=== PATIENT | male | born 1995 | race African-American/Black ===

== ENCOUNTER 2018-10-12 21:43 | Emergency (ER) | payer OTHER ==
[~2018-10-12] VITALS: Ht 182.9 cm; Wt 106.6 kg
[2018-10-12 22:00] VITALS: BP 133/63
--- NOTE | 2018-10-12 22:59 | PHYS DOC ---
Past Medical History Past Medical History: No Pertinent History Past Surgical History: No Surgical History Alcohol Use: Occasionally Drug Use: None Adult General Chief Complaint Chief Complaint: EARACHE/EAR PAIN HPI HPI 23 y/o male presents to ER for c/o rt ear pain/pressure x1 day with concerns something is in his ear. He denies any other cold/flu like illness. He denies taking OTC meds for pain. He denies previous ear issues. He denies fever, MAGDALENO, dizziness, or N/V. Review of Systems Review of Systems Constitutional: Denies fever or chills [] Eyes: Denies change in visual acuity, redness, or eye pain [] HENT: Denies nasal congestion or sore throat/throat swelling. Reports rt ear pain/pressure- denies drainage. Denies Lt ear complaints. Denies decreased hearing Respiratory: Denies cough or shortness of breath [] Cardiovascular: No additional information not addressed in HPI [] GI: Denies nausea, vomiting : Denies urinary sxs Musculoskeletal: Denies back/neck pain or joint pain [] Integument: Denies rash or skin lesions [] Neurologic: Denies headache, focal weakness or sensory changes. Denies dizziness All other systems were reviewed and found to be within normal limits, except as documented in this note. Allergies Allergies Allergies Coded Allergies Type Severity Reaction Last Updated Verified No Known Drug Allergies 09/26/13 No Physical Exam Physical Exam Constitutional: Well developed, well nourished, no acute distress, non-toxic appearance. [] HENT: Normocephalic, atraumatic, lt ear exam NL, rt ear with mild erythema at TM without bulging/perforation- no purulent/bloody drainage- bilat. external canals NL, no excessive wax bilat. ears.Oropharynx moist, no oral exudates, nose normal. [] Eyes: 3mm PERRLA, no nystagmus, conjunctiva normal, no discharge. [] Neck: Normal range of motion, no tenderness, supple, no gross adenopathy Cardiovascular: Heart rate regular Lungs & Thorax: Resp. equal/nonlabored Skin: Warm, dry, no erythema, no rash. [] Extremities: ROM intact Neurologic: Alert and oriented X 3, normal motor function, normal sensory function, no focal deficits noted. [] Psychologic: Affect normal, judgement normal, mood normal. [] Current Patient Data Vital Signs Vital Signs Date Time Temp Pulse Resp B/P (MAP) Pulse Ox O2 Delivery O2 Flow Rate FiO2 10/12/18 22:00 98.4 89 18 133/63 (86) 99 Room Air 98.4 EKG EKG [] Radiology/Procedures Radiology/Procedures [] Course & Med Decision Making Course & Med Decision Making Pt during this provider's exam reports when RN looked in his rt ear during triage she may have dislodged whatever was causing his rt ear pressure/pain had subsided. RN reported there was sm. piece of wax on otoscope tip otherwise nothing else had been removed. On exam pt had mild erythema at TM without bulging/purulent or bloody drainage. Pt denied any auditory deficits. Pt was in no distress and was requesting d/c home as his sxs had subsided. Education provided on OTC wax tx options and to avoid insertion of objects into ear canal. Advised with concerns to f/u with PCP and/or ENT for re-eval. Education provided on s&s to return to ER for and d/c instructions were discussed. Dragon Disclaimer Dragon Disclaimer This electronic medical record was generated, in whole or in part, using a voice recognition dictation system. Departure Departure Impression: Primary Impression: Otalgia of right ear Additional Impression: Excess ear wax Disposition: HOME, SELF-CARE Condition: STABLE Referrals: NO PCP (PCP) Patient Instructions: Otalgia Additional Instructions: Avoid Qtips or insertion of objects into the ear canal to prevent wax being pushed up against tympanic membrane. There are over the counter medications you can use for ear wax build up- use as directed on container. Follow up with your primary doctor or an ENT (ear, nose, throat) doctor for re- evaluation if symptoms persist. Problem Qualifiers CAT MIMS APRN Oct 12, 2018 22:59
== END 2018-10-12 23:19 | disposition home or self-care (01) ==
LOC: ER 21:43
DX: H61.21 Impacted cerumen, right ear (principal)
CPT/HCPCS: 99281